=== PATIENT | male | born 1995 | race African-American/Black ===

== ENCOUNTER 2017-11-28 19:58 | Emergency (ER) | payer SELFPAY ==
[~2017-11-28] VITALS: Ht 177.8 cm; Wt 80.0 kg
[2017-11-28 19:58] VITALS: BP 109/72
== END 2017-11-28 21:00 | disposition left against medical advice (07) ==
LOC: ER 19:58
DX: R10.9 Unspecified abdominal pain (principal); R11.2 Nausea with vomiting, unspecified; Z53.21 Procedure and treatment not carried out due to patient leaving prior to being seen by health care provider